=== PATIENT | male | born 1980 | race Caucasian/White ===

== ENCOUNTER 2016-11-13 09:47 | Emergency (ER) | payer OTHER, BC ==
--- NOTE | 2016-11-13 10:35 | EDM.PDOC ---
ED HPI SEIZURE COMPLAINT - General Chief Complaint: Syncope Stated Complaint: [facility] Time Seen by Provider: 11/13/16 10:02 Source of Information: Reports: Patient, RN notes reviewed - History of Present Illness INITIAL COMMENTS - FREE TEXT/NARRATIVE: 36-year-old male suffered near syncope a short time ago at work. He was standing when he began to feel very weak dizzy lightheaded and felt like he was about to pass out. He did tell coworker that he was not feeling well and he then did pass out for a very short period of time. He fell into some boxes so did not suffer any injury. He has not been ill recently. No recent vomiting or diarrhea. No history of prior syncope. No chest pain or difficulty breathing. He feels much better now. He had suffered a deep abrasion injury to his right hand shortly before this happened. There was some bleeding associated with that. He is up-to-date with tetanus. - Related Data Allergies/ADRs: Allergies Allergy/AdvReac Type Severity Reaction Status Date / Time No Known Allergies Allergy Verified 11/13/16 09:55 Home Meds: Home Meds Lisinopril 40 mg PO DAILY 11/13/16 [History] Sertraline [Zoloft] 100 mg PO DAILY 11/13/16 [History] busPIRone [Buspar] 10 mg PO BID 11/13/16 [History] Past Medical History Cardiovascular History: Reports: Hypertension Psychiatric History: Reports: Anxiety - Past Surgical History Other Musculoskeletal Surgeries/Procedures:: right tib fib fracture, multiple fracture Social & Family History - Family History Cardiac: Reports: Hypertension - Tobacco Use Smoking Status *Q: Never Smoker Years of Tobacco use: 4 Packs/Tins Daily: 0.5 Second Hand Smoke Exposure: No - Caffeine Use Caffeine Use: Reports: Coffee, Energy drinks - Recreational Drug Use Recreational Drug Use: No ED ROS GENERAL - Review of Systems Review Of Systems: See Below Constitutional: Reports: diaphoresis (Gone). Denies: fever, chills HEENT: Denies: Sinus problem, Throat pain Respiratory: Denies: Shortness of Breath, Pleuritic Chest Pain Cardiovascular: Denies: Chest pain GI/Abdominal: Reports: Nausea (Mild, gone). Denies: Abdominal pain, Diarrhea, Vomiting Musculoskeletal: Reports: no symptoms Skin: Reports: no symptoms Neurological: Reports: No Symptoms - Physical Exam Exam: See Below General Appearance: alert, no apparent distress Eye Exam: bilateral eye: PERRL Throat/Mouth: Normal inspection, Normal oropharynx Head Exam: atraumatic. No: facial swelling Neck: supple, full range of motion Respiratory/Chest: no respiratory distress, lungs clear, normal breath sounds Cardiovascular: regular rate, rhythm GI/Abdominal: soft, non tender Neuro Exam (Abbreviated): alert, oriented, no motor/sensory deficits Extremities: normal inspection, normal range of motion Skin Exam: Warm, Dry, Normal color, No rash EKG INTERPRETATION EKG Date: 11/13/16 Rhythm: NSR QRS: other (Mild nonspecific intraventricular conduction delay) ST-T: depressed (T-wave inversion in lead 3) Course - Vital Signs Last Recorded V/S: Last Vital Signs Temp 95.8 F 11/13/16 09:51 Pulse 60 11/13/16 12:20 Resp 12 11/13/16 09:51 BP 130/64 11/13/16 12:20 Pulse Ox 98 11/13/16 12:20 Orthostatic Blood Pressure [ 117/73 Standing] Orthostatic Blood Pressure [ 123/83 Sitting] Orthostatic Blood Pressure [ 119/69 Supine] - Orders/Labs/Meds Orders: Active Orders 24 hr Category Date Time Status EKG 12 Lead [EKG Documentation Completion] [RC] STAT Care 11/13/16 10:03 Active Labs: Laboratory Tests 11/13/16 11/13/16 Range/Units 10:15 10:15 WBC 7.22 (4.23-9.07) K/mm3 RBC 5.14 (4.63-6.08) M/mm3 Hgb 14.7 (13.7-17.5) gm/L Hct 42.4 (40.1-51.0) % MCV 82.5 (79.0-92.2) fl MCH 28.6 (25.7-32.2) pg MCHC 34.7 (32.2-35.5) g/dl RDW Std Deviation 38.9 (35.1-43.9) fL Plt Count 304 (163-337) K/mm3 MPV 10.3 (9.4-12.3) fl Neut % (Auto) 59.1 (34.0-67.9) % Lymph % (Auto) 30.2 (21.8-53.1) % Larue % (Auto) 6.4 (5.3-12.2) % Eos % (Auto) 3.3 (0.8-7.0) Baso % (Auto) 0.4 (0.1-1.2) % Neut # (Auto) 4.27 (1.78-5.38) K/mm3 Lymph # (Auto) 2.18 (1.32-3.57) K/mm3 Larue # (Auto) 0.46 (0.30-0.82) K/mm3 Eos # (Auto) 0.24 (0.04-0.54) K/mm3 Baso # (Auto) 0.03 (0.01-0.08) K/mm3 Sodium 139 (136-145) mEq/L Potassium 4.6 (3.5-5.1) mEq/L Chloride 104 (98-107) mEq/L Carbon Dioxide 25 (21-32) mEq/L Anion Gap 14.6 (5-15) BUN 16 (7-18) mg/dL Creatinine 0.9 (0.7-1.3) mg/dL Est Cr Clr Drug Dosing 125.74 mL/min Estimated GFR (MDRD) > 60 (>60) mL/min BUN/Creatinine Ratio 17.8 (14-18) Glucose 126 H (74-106) mg/dL Calcium 9.1 (8.5-10.1) mg/dL Total Bilirubin 0.9 (0.2-1.0) mg/dL AST 19 (15-37) U/L ALT 30 (16-63) U/L Alkaline Phosphatase 72 (46-116) U/L Total Protein 7.7 (6.4-8.2) g/dl Albumin 4.3 (3.4-5.0) g/dl Globulin 3.4 gm/dL Albumin/Globulin Ratio 1.3 (1-2) - Re-Assessments/Exams Free Text/Narrative Re-Assessment/Exam: 11/13/16 16:20. Labs were good, he has remained in sinus rhythm no ectopy. He is felt fine while here in the ED, blood pressure and other vitals have been good. Discharge instructions as documented Departure - Departure Time of Disposition: 12:12 Disposition: Home, Self-Care 01 Condition: fair Clinical Impression: Syncope Qualifiers: Syncope type: vasovagal syncope Qualified Code(s): R55 - Syncope and collapse Hand abrasion Qualifiers: Encounter type: initial encounter Laterality: right Qualified Code(s): S60.511A - Abrasion of right hand, initial encounter Instructions: Abrasion, [id number], Syncope, [id number] Referrals: Efra Lion MD [Primary Care Provider] - Forms: ED Department Discharge, Return to Work/School Form Additional Instructions: You're released back to work no restrictions, drink plenty of water to maintain hydration, wound care instructions for right hand injury, Tylenol or ibuprofen if needed for discomfort, followup clinic as needed, return to ED as needed - My Orders Last 24 Hours: My Active Orders 11/13/16 10:03 EKG 12 Lead [EKG Documentation Completion] [RC] STAT - Assessment/Plan Last 24 Hours: My Active Orders 11/13/16 10:03 EKG 12 Lead [EKG Documentation Completion] [RC] STAT
[2016-11-13 12:35] VITALS: BP 130/64
== END 2016-11-13 12:30 | disposition home or self-care (01) ==
LOC: JD.ED 09:47
DX: R55 Syncope and collapse (principal); S60.511A Abrasion of right hand, initial encounter; I10 Essential (primary) hypertension; F41.9 Anxiety disorder, unspecified; Z79.899 Other long term (current) drug therapy; X58.XXXA Exposure to other specified factors, initial encounter
CPT/HCPCS: 36415; 80053; 85025; 93005; 99284; 99285-25